=== PATIENT | female | born 1990 | race Asian ===

== ENCOUNTER → 2020-08-05 11:52 | Outpatient (BNVA) | payer OTHER, SELFPAY | PROVIDERS: PCP Internal Medicine; Visit Provider Advanced Practice Midwife | DX: N92.6 Irregular menstruation, unspecified (principal) | CPT/HCPCS: 81025; 99212 ==

== ENCOUNTER 2020-08-06 08:29 | Outpatient (REF) | payer OTHER, SELFPAY ==
--- NOTE | ~2020-08-06 | US_ITS ---
EXAMINATION: US OBSTETRICAL ULTRASOUND CLINICAL INFORMATION: For size and dates. COMPARISON: None. LMP: 06/07/2020. Gestational age by maternal dates is 8 weeks and 4 days. Estimated date of delivery by maternal dates is 02/14/2021. TECHNIQUE: Routine transabdominal ultrasound of pelvis is performed. FINDINGS: There is a single intrauterine gestational sac with visible yolk sac, embryo/fetus, and cardiac activity. There is no significant subchorionic hemorrhage or hematoma. HR: 135 beats per minute. CRL (crown rump length): 1.04 cm (7 weeks and 1 day, +/- 4 days). FRANCISCO (estimated date of delivery): 03/24/2021 +/- 4 days. MATERNAL ADNEXA: The right maternal ovary measures 2.78 x 1.04 x 2.61 cm. No focal lesion seen The left maternal ovary measures 3.37 x 2.32 x 2.36 cm. No focal lesion seen There is no significant maternal adnexal mass. No maternal pelvic ascites. US/US OB <= 14 weeks fetus IMPRESSION: 1. Single intrauterine gestation with ultrasound gestational age of 7 weeks and 1 day, +/- 4 days. 2. Estimated date of delivery is 03/24/2021 +/- 4 days. 3. No maternal adnexal mass or pelvic ascites.
== END 2020-08-06 08:30 | disposition home or self-care (01) ==
LOC: HO.HMGCX 08:29
PROVIDERS: Visit Provider Advanced Practice Midwife
DX: R10.2 Pelvic and perineal pain (principal); N92.6 Irregular menstruation, unspecified
CPT/HCPCS: 76801

== ENCOUNTER → 2020-08-21 10:01 | Outpatient (BNVA) | payer OTHER, SELFPAY | PROVIDERS: Visit Provider Advanced Practice Midwife | DX: Z34.90 Encounter for supervision of normal pregnancy, unspecified, unspecified trimester (principal); R20.0 Anesthesia of skin; N92.6 Irregular menstruation, unspecified; Z78.9 Other specified health status; Z3A.09 9 weeks gestation of pregnancy | CPT/HCPCS: 99212 ==

== ENCOUNTER → 2020-08-24 15:09 | Outpatient (REF) | payer OTHER, SELFPAY ==
--- NOTE | 2020-08-24 15:15 | ECG_ITS ---
Test Reason : PALPITATIONS Blood Pressure : / mmHG Vent. Rate : 102 BPM Atrial Rate : 102 BPM P-R Int : 116 ms QRS Dur : 084 ms QT Int : 330 ms P-R-T Axes : 060 029 057 degrees QTc Int : 430 ms Sinus tachycardia Otherwise normal ECG No previous ECGs available Referred By: Milagros Collier Electronically Signed By:CASSY FLORES
[2020-08-24 16:34] LABS: MANUAL DIFF FLAG NO
[2020-08-24 16:38] LABS: Basophils Percent Auto 0.1 % (0-2); Eosinophils Percent Auto 0.6 % (0-4); Hematocrit 38.4 % (37-47); Hemoglobin 12.7 g/dl (12.0-16.0); Imm Gran Abs Auto 0.03 X10*3/uL (0.00-0.03); Imm Gran Pct Auto 0.4 % (0.0-0.4); Lymphocytes Absolute Auto 1.6 X10*3/uL (1.2-4.9); Lymphocytes Percent Auto 22.5 % (20-40); Mean Corpuscular HGB Conc 33.1 g/dl (31.0-35.0); Mean Corpuscular Hemoglobin 28.1 pg (27.0-33.0); Mean Platelet Volume 10.1 fL (9.4-12.3); Monocytes Absolute Auto 0.4 X10*3/uL (0.1-1.2); Monocytes Percent Auto 5.2 % (2-11); Neutrophils Percent Auto 71.2 % (45-73); Platelet Count 302 X10*3/uL (160-400); Red Blood Count 4.52 X10*6/uL (4.20-5.50); Red Cell Distribution Width 15.5 % (11.0-16.0)
[2020-08-24 16:58] LABS: Amphetamine Screen Urine Not Detected (Not Detect); Barbiturates, Urine Not Detected (Not Detect); Benzodiazepines Screen Urine Not Detected (Not Detect); Cannabinoid Screen Urine Not Detected (Not Detect); Cocaine Screen Urine Not Detected (Not Detect); Opiate Screen Urine Not Detected (Not Detect); Phencyclidine Screen Urine Not Detected (Not Detect)
[2020-08-24 17:14] LABS: Syphilis Screen Nonreactive (Nonreactive)
[2020-08-24 17:21] LABS: Thyroid Stimulating Hormone 3.21 uIU/mL (0.32-4.0)
[2020-08-25 08:14] LABS: HBsAGNum1 0.41 S/CO (0.00-0.99); Hepatitis B Surface Antigen Negative (Negative)
[2020-08-25 08:28] LABS: HIV AB/AG Nonreactive (Nonreactive); HIV Num 1 0.06 S/CO (0.00-0.99); ~HepC Num1 0.09 S/CO (0.00-0.79); ~Hepatitis C Antibody Nonreactive (Nonreactive)
[2020-08-25 09:11] LABS: Rubella IgG Antibody 2.22 Index
== END ==
LOC: HO.CARD 15:09
PROVIDERS: PCP Internal Medicine; Visit Provider Advanced Practice Midwife
DX: O26.899 Other specified pregnancy related conditions, unspecified trimester (principal); R00.2 Palpitations
CPT/HCPCS: 80307; 84443; 85025; 86762; 86780; 86787; 86803; 86850; 86900; 86901; 87086; 87340; 87389; 93005

== ENCOUNTER 2020-09-02 11:03 | Outpatient (REF) | payer OTHER, SELFPAY ==
[2020-09-02 15:36] LABS: Glucose 1 Hour PP 50gm Dose 74 mg/dL (60-140)
[2020-09-02 16:03] LABS: Free T4 (Free Thyroxine) 0.71 ng/dL (0.71-1.85)
[2020-09-03 09:37] LABS: CT PCR NOT DETECTED (Not Detect.); NG PCR NOT DETECTED (Not Detect.)
[2020-09-03 09:51] LABS: BV Int Neg Control Negative (Negative); BV Int Pos Control Positive (Positive)
== END 2020-09-02 11:04 | disposition home or self-care (01) ==
LOC: HO.LAB 11:03
PROVIDERS: Absent Provider Advanced Practice Midwife; PCP Internal Medicine; Visit Provider Advanced Practice Midwife
DX: O26.899 Other specified pregnancy related conditions, unspecified trimester (principal); R94.6 Abnormal results of thyroid function studies; Z20.2 Contact with and (suspected) exposure to infections with a predominantly sexual mode of transmission; Z83.3 Family history of diabetes mellitus
CPT/HCPCS: 36415; 84439; 87480; 87491; 87510; 87591; 87660; 99212

== ENCOUNTER 2020-09-11 09:36 | Outpatient (REF) | payer OTHER, SELFPAY ==
--- NOTE | ~2020-09-11 | US_ITS ---
EXAMINATION: OBSTETRICAL ULTRASOUND, FIRST TRIMESTER HISTORY: 30-year-old at 12.2 weeks of gestation NT screening COMPARISON: 08/06/2020 TECHNIQUE: Real time transabdominal imaging with color and M-mode Doppler. FINDINGS: A single, live IUP CRL of 60.6 mm c/w 12.4wks is noted. Heart Rate: 150 beats per minute. Normal yolk sac seen. NT was 1.9.mm. NB Present The embryo appears sonographically wnl for this GA. Both maternal ovaries are seen and appear normal. GESTATIONAL AGE: 1. Established GA: 12.2 wks 2. GA from AUA: 03/24/2021 wks ESTIMATED DATE OF DELIVERY: 1. Established FRANCISCO: 12.4 wks 2. FRANCISCO from A: 03/22/2021 US/US OB 1T nuc measure add IMPRESSION: 1. Single live IUP 2. Size equals dates 3. NT of 1.9 mm MFM Consultation: I reviewed the ultrasound findings along with significance of NT measurement. The NT of less than 3mm is generally reassuring. However, the sensitivity for T21 detection is only 60%. I reviewed the availability of serum aneuploidy screening which includes cell-free DNA and placental protein based tests. I discussed the sensitivity, false-positive rate, and other limitations associated with each test. I also reviewed the availability of invasive diagnostic tests that are associated small but definite risk of miscarriage. We also reviewed the differences between screening tests and diagnostic tests. After our discussion, she opted for the First trimester screening that is based on cell-free DNA or non-invasive testing (NIPT). The result will be faxed to your office in approximately 7 days. A follow up at 18 weeks for survey has been scheduled. Thank you very much for this referral. Total time 20 minutes. The time spent was devoted to counseling the patient about the disease and diagnosis, coordinating care including reviewing her records, pertinent lab data and studies, as well as discussing diagnostic evaluation and workup, plan therapeutic interventions and future disposition of care. This includes any additional research needed to obtain further information in formulating the plan of care of this patient. This note was generated with a voice recognition program. Please excuse any errors which may have been overlooked during my review of this note. Sometimes these errors may affect the content or meaning of a given sentence.
== END 2020-09-11 09:37 | disposition home or self-care (01) ==
LOC: HO.US 09:36
PROVIDERS: PCP Internal Medicine; Visit Provider Advanced Practice Midwife
DX: Z34.90 Encounter for supervision of normal pregnancy, unspecified, unspecified trimester (principal); Z36.82 Encounter for antenatal screening for nuchal translucency
CPT/HCPCS: 76813; 76814

== ENCOUNTER → 2020-09-30 14:36 | Outpatient (BNVA) | payer OTHER, SELFPAY | PROVIDERS: Visit Provider Obstetrics & Gynecology | DX: R94.6 Abnormal results of thyroid function studies (principal) | CPT/HCPCS: 81003; 99212 ==

== ENCOUNTER → 2020-10-01 14:16 | Outpatient (BNVA) | payer OTHER, SELFPAY | PROVIDERS: PCP Internal Medicine; Visit Provider Internal Medicine ==

== ENCOUNTER 2020-10-05 15:31 | Outpatient (REF) | payer OTHER, SELFPAY ==
[2020-10-06 18:56] LABS: Thyroglobulin Antibodies <1 IU/mL (< or = 1); Thyroid Peroxidase Antibodies <1 IU/mL (<9)
== END 2020-10-05 15:32 | disposition home or self-care (01) ==
LOC: HO.LAB 15:31
PROVIDERS: PCP Internal Medicine; Visit Provider Internal Medicine
DX: E03.9 Hypothyroidism, unspecified (principal)
CPT/HCPCS: 36415; 86376; 86800

== ENCOUNTER 2020-10-23 11:32 | Outpatient (REF) | payer OTHER, SELFPAY ==
--- NOTE | ~2020-10-23 | US_ITS ---
EXAMINATION: US OBSTETRICAL CLINICAL INFORMATION: 30-year-old at 18.2 weeks of gestation Screening for anomaly COMPARISON: 09/11/2020 TECHNIQUE: Real-time transabdominal ultrasound was performed using C1-5 megahertz transducer. FINDINGS: A single, active, fetus is seen in vertex presentation. The placenta is posterior without previa, and the amniotic fluid volume is wnl. MEASUREMENTS: 1. Biparietal Diameter: 4.0 cm; 18.2 wks 2. Occipital Frontal Diameter: 5.4 cm 3. Head Circumference: 15.3 cm; 18.3 wks 4. Abdominal Circumference: 12.1 cm; 17.6 wks 5. Femur Length: 2.8 cm; 18.4 wks 6. Humerus Length: 2.7 cm; 18.4 wks 7. Tibia Length: 2.2 cm; 18.0 wks 8. Ulna Length: 2.3 cm; 18.1 wks 9. Lateral ventricle: 0.7 cm 10. Cerebellum: 1.8 cm; 18.5 wks 11. Cisterna Magna: 0.24 cm 12. Nuchal Fold: 3.0 mm 13. Heart Rate: 149 beats per minute Rt ovary: normal Lt ovary: normal Cervical length 3.7 cm on T/A. GESTATIONAL AGE: 1. Established GA: 18.2 wks 2. GA from [facility]: 18.2 wks ESTIMATED DATE OF DELIVERY: 1. Established FRANCISCO: 03/24/2021 2. FRANCISCO from [facility]: 03/24/2021 ANATOMY: The visualized anatomy includes but not limited to: 1. Cranium: Normal 2. Intracranial anatomy: cavum septum pellucidi, lateral ventricles, choroid plexus, cerebellum, posterior fossa, third and fourth ventricles. 3. face: orbits, lip/palate, profile, nasal bone 4. Heart: four-chamber view of the heart, ventricular septum, foramen ovale, pulmonary vein, left and right outflow tracts, three-vessel view, 3 vessel trachea view, aortic and ductal arches, situs.. 5. Diaphragm: Normal 6. Abdominal wall: Normal 7. Cord Insertion: Normal 8. Spine: Cervical, thoracic, lumbar, sacral. 9. Stomach: Normal size and shape 10. Right Kidney: Normal 11. Left Kidney: Normal 12. 3 vessel cord: Normal 13. Upper extremity: Open hands, fifth digit. 14. Lower extremity: Tibia, fibula, bilateral feet. 15. Bladder: Normal 16. Genitalia: Female, patient aware US/US OB /maternal detail IMPRESSION: 1. Single, living, intrauterine with appropriate biometry. 2. Normal survey DISCUSSION: I reviewed today's ultrasound findings. We discussed the limitations of ultrasound in diagnosing aneuploidy and other congenital abnormalities. I reviewed the differences between screening test and diagnostic test. Amniocentesis was discussed and declined. She was informed that the baseline incidence of congenital abnormalities is approximately 3-5%. Not all these conditions are diagnosable in utero. RECOMMENDATIONS: 1. Follow-up when necessary. Thank you for allowing me to participate in her care. Total time 30 minutes. The time spent was devoted to counseling the patient about the disease and diagnosis, coordinating care including reviewing her records, pertinent lab data and studies, as well as discussing diagnostic evaluation and workup, plan therapeutic interventions and future disposition of care. This includes any additional research needed to obtain further information in formulating the plan of care of this patient. This note was generated with a voice recognition program. Please excuse any errors which may have been overlooked during my review of this note. Sometimes these errors may affect the content or meaning of a given sentence.
== END 2020-10-23 11:33 | disposition home or self-care (01) ==
LOC: HO.US 11:32
PROVIDERS: PCP Internal Medicine; Visit Provider Obstetrics & Gynecology
DX: Z34.92 Encounter for supervision of normal pregnancy, unspecified, second trimester (principal); Z36.3 Encounter for antenatal screening for malformations
CPT/HCPCS: 76811

== ENCOUNTER → 2020-10-29 14:51 | Outpatient (BNVA) | payer OTHER, SELFPAY | PROVIDERS: PCP Internal Medicine; Visit Provider Advanced Practice Midwife | DX: Z34.92 Encounter for supervision of normal pregnancy, unspecified, second trimester (principal); M53.3 Sacrococcygeal disorders, not elsewhere classified; Z3A.19 19 weeks gestation of pregnancy | CPT/HCPCS: 99212 ==

== ENCOUNTER → 2020-11-04 10:47 | Outpatient (BNVA) | payer OTHER, SELFPAY | PROVIDERS: PCP Internal Medicine; Visit Provider Internal Medicine ==

== ENCOUNTER 2020-12-09 13:41 | Outpatient (REF) | payer OTHER, SELFPAY ==
[2020-12-09 16:28] LABS: Free T4 (Free Thyroxine) 0.78 ng/dL (0.71-1.85); Thyroid Stimulating Hormone 0.59 uIU/mL (0.32-4.0)
== END 2020-12-09 13:42 | disposition home or self-care (01) ==
LOC: HO.LAB 13:41
PROVIDERS: PCP Nurse Practitioner Family; Referring Provider Internal Medicine; Visit Provider Advanced Practice Midwife
DX: O26.892 Other specified pregnancy related conditions, second trimester (principal); E03.9 Hypothyroidism, unspecified
CPT/HCPCS: 36415; 84439; 84443; 99212

== ENCOUNTER 2020-12-31 13:52 | Outpatient (REF) | payer OTHER, SELFPAY ==
[2020-12-31 16:42] LABS: Hematocrit 38.6 % (37-47); Hemoglobin 12.4 g/dl (12.0-16.0); Mean Corpuscular HGB Conc 32.1 g/dl (31.0-35.0); Mean Corpuscular Hemoglobin 28.4 pg (27.0-33.0); Mean Corpuscular Volume 88.3 fL (80-98); Mean Platelet Volume 10.1 fL (9.4-12.3); Platelet Count 280 X10*3/uL (160-400); Red Blood Count 4.37 X10*6/uL (4.20-5.50); Red Cell Distribution Width 14.1 % (11.0-16.0); White Blood Count 8.7 X10*3/uL (4.8-10.8)
[2020-12-31 17:11] LABS: Alanine Aminotransferase 23 U/L (0-31); Aspartate Amino Transferase 19 U/L (5-31); Blood Urea Nitrogen 9 mg/dL (9-16)
[2020-12-31 17:33] LABS: Creatinine Urine 45.46 mg/dL; Total Protein Urine Random < 7 mg/dL (<12)
== END 2020-12-31 13:53 | disposition home or self-care (01) ==
LOC: HO.LAB 13:52
PROVIDERS: Absent Provider Internal Medicine; PCP Nurse Practitioner Family; Visit Provider Advanced Practice Midwife
DX: O26.899 Other specified pregnancy related conditions, unspecified trimester (principal); O26.849 Uterine size-date discrepancy, unspecified trimester; R10.11 Right upper quadrant pain; R51.9 Headache, unspecified; Z56.3 Stressful work schedule; Z13.31 Encounter for screening for depression; Z3A.28 28 weeks gestation of pregnancy
CPT/HCPCS: 36415; 81003; 84156; 84450; 84460; 84520; 85027; 99212

== ENCOUNTER 2021-01-08 08:28 | Outpatient (REF) | payer OTHER, SELFPAY ==
--- NOTE | ~2021-01-08 | US_ITS ---
EXAMINATION: OBSTETRICAL ULTRASOUND, Follow up HISTORY: A 30-year-old at the 29.2 weeks of gestation Size date discrepancy COMPARISON: 10/23/2020 TECHNIQUE: Real time transabdominal imaging with color and M-mode Doppler. PRESENTATION: Breech PLACENTA LOCATION: Posterior without previa AMNIOTIC FLUID: DAVON 12.5 cm MEASUREMENTS: 1. Biparietal Diameter: 6.8 cm; 27.4 wks 2. Head Circumference: 26.5 cm; 29.0 wks 3. Abdominal Circumference: 23.1 cm; 27.3 wks 4. Femur Length: 5.4 cm; 28.5 wks 5. Heart Rate: 143 beats per minute WEIGHT: EFW: 1155 grams (2 lbs 9 oz) -- 7 %. BIOPHYSICAL PROFILE: Motion: 2 Tone: 2 Breathin Amniotic Fluid: 2 Total score: 8/8 UA Doppler showed the SD ratio of 2.7. GESTATIONAL AGE: 1. Established GA: 29.2 wks 2. GA from AUA: 28.2 wks ESTIMATED DATE OF DELIVERY: 1. Established FRANCISCO: 03/24/2021 2. FRANCISCO from AUA: 03/31/2021 US/US OB follow up IMPRESSION: 1. A single active fetus is in breech presentation 2. Size less than dates. EFW corresponds to 7th percentile 3. Reassuring biophysical profile 4. Normal SD ratio in the umbilical artery I reviewed today's ultrasound findings and informed her that the EFW is below the 10th percentile. We also discussed the limitations of ultrasound in estimating weights. I informed her that the majority of the fetuses whose EFW corresponds to less than 10th percentile are constitutionally small but healthy fetuses growing to their full genetic potential. Approximately 30% may be experiencing placental insufficiency and are not growing to their full genetic potential. Often it can be difficult to distinguish the 2 in utero. The testing is reassuring including the umbilical artery Doppler. I recommended that we begin weekly NST, BPP/UA Doppler evaluation. A repeat growth will be done in 2 weeks. Thank you very much for this referral. Total time 30 minutes. The time spent was devoted to counseling the patient about the disease and diagnosis, coordinating care including reviewing her records, pertinent lab data and studies, as well as discussing diagnostic evaluation and workup, plan therapeutic interventions and future disposition of care. This includes any additional research needed to obtain further information in formulating the plan of care of this patient. This note was generated with a voice recognition program. Please excuse any errors which may have been overlooked during my review of this note. Sometimes these errors may affect the content or meaning of a given sentence.
--- NOTE | ~2021-01-08 | US_ITS ---
EXAMINATION: OBSTETRICAL ULTRASOUND, Follow up HISTORY: A 30-year-old at the 29.2 weeks of gestation Size date discrepancy COMPARISON: 10/23/2020 TECHNIQUE: Real time transabdominal imaging with color and M-mode Doppler. PRESENTATION: Breech PLACENTA LOCATION: Posterior without previa AMNIOTIC FLUID: DAVON 12.5 cm MEASUREMENTS: 1. Biparietal Diameter: 6.8 cm; 27.4 wks 2. Head Circumference: 26.5 cm; 29.0 wks 3. Abdominal Circumference: 23.1 cm; 27.3 wks 4. Femur Length: 5.4 cm; 28.5 wks 5. Heart Rate: 143 beats per minute WEIGHT: EFW: 1155 grams (2 lbs 9 oz) -- 7 %. BIOPHYSICAL PROFILE: Motion: 2 Tone: 2 Breathin Amniotic Fluid: 2 Total score: 8/8 UA Doppler showed the SD ratio of 2.7. GESTATIONAL AGE: 1. Established GA: 29.2 wks 2. GA from A: 28.2 wks ESTIMATED DATE OF DELIVERY: 1. Established FRANCISCO: 03/24/2021 2. FRANCISCO from AUA: 03/31/2021 US/US OB velocimetry umbilical ar IMPRESSION: 1. A single active fetus is in breech presentation 2. Size less than dates. EFW corresponds to 7th percentile 3. Reassuring biophysical profile 4. Normal SD ratio in the umbilical artery I reviewed today's ultrasound findings and informed her that the EFW is below the 10th percentile. We also discussed the limitations of ultrasound in estimating weights. I informed her that the majority of the fetuses whose EFW corresponds to less than 10th percentile are constitutionally small but healthy fetuses growing to their full genetic potential. Approximately 30% may be experiencing placental insufficiency and are not growing to their full genetic potential. Often it can be difficult to distinguish the 2 in utero. The testing is reassuring including the umbilical artery Doppler. I recommended that we begin weekly NST, BPP/UA Doppler evaluation. A repeat growth will be done in 2 weeks. Thank you very much for this referral. Total time 30 minutes. The time spent was devoted to counseling the patient about the disease and diagnosis, coordinating care including reviewing her records, pertinent lab data and studies, as well as discussing diagnostic evaluation and workup, plan therapeutic interventions and future disposition of care. This includes any additional research needed to obtain further information in formulating the plan of care of this patient. This note was generated with a voice recognition program. Please excuse any errors which may have been overlooked during my review of this note. Sometimes these errors may affect the content or meaning of a given sentence.
== END 2021-01-08 08:29 | disposition home or self-care (01) ==
LOC: HO.US 08:28
PROVIDERS: PCP Internal Medicine; Visit Provider Advanced Practice Midwife
DX: O26.843 Uterine size-date discrepancy, third trimester (principal); Z3A.29 29 weeks gestation of pregnancy
CPT/HCPCS: 76816; 76820

== ENCOUNTER → 2021-01-14 14:40 | Outpatient (BNVA) | payer MEDICAID, SELFPAY | PROVIDERS: PCP Nurse Practitioner Family; Visit Provider Advanced Practice Midwife | DX: O36.5930 Maternal care for other known or suspected poor fetal growth, third trimester, not applicable or unspecified (principal); Z3A.30 30 weeks gestation of pregnancy | CPT/HCPCS: 99212 ==

== ENCOUNTER 2021-01-15 13:34 | Outpatient (REF) | payer MEDICAID, OTHER, SELFPAY ==
--- NOTE | ~2021-01-15 | US_ITS ---
EXAMINATION: US OBSTETRICAL (BIOPHYSICAL PROFILE) CLINICAL INFORMATION: 30-year-old at 30.2 weeks of gestation IUGR COMPARISON: 01/08/2021 TECHNIQUE: Biophysical profile is performed over 30 minutes with assessment of breathing, gross body movement, tone, and qualitative amniotic fluid volume. FINDINGS: POSITION: Cephalic PLACENTA: Posterior without previa AMNIOTIC FLUID INDEX: 16.0 cm CARDIAC ACTIVITY: 153 beats per minute BIOPHYSICAL PROFILE: Motion: 2 Tone: 2 Breathin Amniotic Fluid: 2 The total biophysical score is 8/8 Umbilical artery Doppler showed SD ratio of 2.8. US/US OB biophysical profile IMPRESSION: 1. Single intrauterine gestation in vertex position. 2. Reassuring BPP and DAVON Continue weekly testing. Repeat growth next week. Thank you for allowing me to participate in her care. This note was generated with a voice recognition program. Please excuse any errors which may have been overlooked during my review of this note. Sometimes these errors may affect the content or meaning of a given sentence.
== END 2021-01-15 13:35 | disposition home or self-care (01) ==
LOC: HO.US 13:34
PROVIDERS: PCP Internal Medicine; Visit Provider Advanced Practice Midwife
DX: O36.5990 Maternal care for other known or suspected poor fetal growth, unspecified trimester, not applicable or unspecified (principal)
CPT/HCPCS: 76819

== ENCOUNTER → 2021-01-20 11:43 | Outpatient (BNVA) | payer OTHER, SELFPAY | PROVIDERS: PCP Nurse Practitioner Family; Visit Provider Internal Medicine ==

== ENCOUNTER 2021-01-22 09:39 | Outpatient (REF) | payer OTHER, SELFPAY ==
--- NOTE | ~2021-01-22 | US_ITS ---
EXAMINATION: OBSTETRICAL ULTRASOUND, Follow up HISTORY: 30-year-old at 31.2 weeks of gestation IUGR COMPARISON: 01/15/2021 TECHNIQUE: Real time transabdominal imaging with color and M-mode Doppler. PRESENTATION: Vertex PLACENTA LOCATION: Posterior without previa AMNIOTIC FLUID: DAVON 12.3 cm MEASUREMENTS: 1. Biparietal Diameter: 7.3 cm; 29.4 wks 2. Head Circumference: 27.4 cm; 30.0 wks 3. Abdominal Circumference: 26.4 cm; 30.4 wks 4. Femur Length: 6.0 cm; 31.2 wks 5. Heart Rate: 153 beats per minute WEIGHT: EFW: 1603 grams (3 lbs 9 oz) -- 18 %. BIOPHYSICAL PROFILE: Motion: 2 Tone: 2 Breathin Amniotic Fluid: 2 Total score: 8/8 UA Doppler: S/D: 2.8 GESTATIONAL AGE: 1. Established GA: 31.2 wks 2. GA from AUA: 30.3 wks ESTIMATED DATE OF DELIVERY: 1. Established FRANCISCO: 03/24/2021 2. FRANCISCO from AUA: 03/30/2021 US/US OB follow up IMPRESSION: 1. A single active fetus is in vertex presentation 2. Size equals dates, compared to the prior exam, there has been an appropriate interval growth. 3. BPP 88 4. Normal umbilical artery Doppler flow. I reviewed the findings listed above appropriate. Both the biophysical profile score and SD ratio through the umbilical artery are reassuring. She is to continue weekly testing. Thank you very much for this referral. This note was generated with a voice recognition program. Please excuse any errors which may have been overlooked during my review of this note. Sometimes these errors may affect the content or meaning of a given sentence.
--- NOTE | ~2021-01-22 | US_ITS ---
EXAMINATION: OBSTETRICAL ULTRASOUND, Follow up HISTORY: 30-year-old at 31.2 weeks of gestation IUGR COMPARISON: 01/15/2021 TECHNIQUE: Real time transabdominal imaging with color and M-mode Doppler. PRESENTATION: Vertex PLACENTA LOCATION: Posterior without previa AMNIOTIC FLUID: DAVON 12.3 cm MEASUREMENTS: 1. Biparietal Diameter: 7.3 cm; 29.4 wks 2. Head Circumference: 27.4 cm; 30.0 wks 3. Abdominal Circumference: 26.4 cm; 30.4 wks 4. Femur Length: 6.0 cm; 31.2 wks 5. Heart Rate: 153 beats per minute WEIGHT: EFW: 1603 grams (3 lbs 9 oz) -- 18 %. BIOPHYSICAL PROFILE: Motion: 2 Tone: 2 Breathin Amniotic Fluid: 2 Total score: 8/8 UA Doppler: S/D: 2.8 GESTATIONAL AGE: 1. Established GA: 31.2 wks 2. GA from A: 30.3 wks ESTIMATED DATE OF DELIVERY: 1. Established FRANCISCO: 03/24/2021 2. FRANCISCO from A: 03/30/2021 US/US OB velocimetry umbilical ar IMPRESSION: 1. A single active fetus is in vertex presentation 2. Size equals dates, compared to the prior exam, there has been an appropriate interval growth. 3. BPP 8/8 4. Normal umbilical artery Doppler flow. I reviewed the findings listed above appropriate. Both the biophysical profile score and SD ratio through the umbilical artery are reassuring. She is to continue weekly testing. Thank you very much for this referral. This note was generated with a voice recognition program. Please excuse any errors which may have been overlooked during my review of this note. Sometimes these errors may affect the content or meaning of a given sentence.
== END 2021-01-22 09:40 | disposition home or self-care (01) ==
LOC: HO.US 09:39
PROVIDERS: Visit Provider Advanced Practice Midwife
DX: O36.5990 Maternal care for other known or suspected poor fetal growth, unspecified trimester, not applicable or unspecified (principal)
CPT/HCPCS: 76816; 76820

== ENCOUNTER 2021-01-26 10:07 | Outpatient (REF) | payer OTHER, SELFPAY ==
[2021-01-26 13:50] LABS: Hematocrit 37.6 % (37-47); Hemoglobin 12.3 g/dl (12.0-16.0); Mean Corpuscular HGB Conc 32.7 g/dl (31.0-35.0); Mean Corpuscular Hemoglobin 28.5 pg (27.0-33.0); Mean Platelet Volume 10.3 fL (9.4-12.3); Platelet Count 260 X10*3/uL (160-400); Red Blood Count 4.32 X10*6/uL (4.20-5.50); Red Cell Distribution Width 13.9 % (11.0-16.0); White Blood Count 7.4 X10*3/uL (4.8-10.8)
[2021-01-26 13:55] LABS: Glucose 1 Hour PP 50gm Dose 129 mg/dL (60-140)
[2021-01-27 08:04] LABS: Syphilis Screen Nonreactive (Nonreactive)
== END 2021-01-26 10:08 | disposition home or self-care (01) ==
LOC: HO.LAB 10:07
PROVIDERS: Absent Provider Advanced Practice Midwife; Visit Provider Advanced Practice Midwife
DX: O36.5930 Maternal care for other known or suspected poor fetal growth, third trimester, not applicable or unspecified (principal); Z3A.31 31 weeks gestation of pregnancy
CPT/HCPCS: 36415; 59025; 81003; 85027; 86780; 99212

== ENCOUNTER → 2021-02-02 10:25 | Outpatient (BNVA) | payer OTHER, SELFPAY | PROVIDERS: Visit Provider Advanced Practice Midwife | DX: O36.5930 Maternal care for other known or suspected poor fetal growth, third trimester, not applicable or unspecified (principal); Z3A.32 32 weeks gestation of pregnancy | CPT/HCPCS: 59025; 81003; 90471; 90715; 99212 ==

== ENCOUNTER 2021-02-05 13:56 | Outpatient (REF) | payer MEDICAID, SELFPAY ==
--- NOTE | ~2021-02-05 | US_ITS ---
EXAMINATION: OBSTETRICAL ULTRASOUND, Follow up HISTORY: A 30-year-old the at the 33.2 weeks of gestation Size date discrepancy COMPARISON: 01/22/1991 TECHNIQUE: Real time transabdominal imaging with color and M-mode Doppler. PRESENTATION: Vertex PLACENTA LOCATION: Posterior without previa AMNIOTIC FLUID: DAVON 15.9 cm MEASUREMENTS: 1. Biparietal Diameter: 7.7 cm; 30.6 wks 2. Head Circumference: 29.6 cm; 32.5 wks 3. Abdominal Circumference: 28.7 cm; 32.5 wks 4. Femur Length: 6.4 cm; 33.2 wks 5. Heart Rate: 138 beats per minute WEIGHT: EFW: 2026 grams (4 lbs 8 oz) -- 24 %. BIOPHYSICAL PROFILE: Motion: 2 Tone: 2 Breathin Amniotic Fluid: 2 Total score: 8/8 UA Doppler: SD 3.8. GESTATIONAL AGE: 1. Established GA: 33.2 wks 2. GA from AUA: 32.3 wks ESTIMATED DATE OF DELIVERY: 1. Established FRANCISCO: 03/24/2021 2. FRANCISCO from AUA: 03/30/2021 US/US OB follow up IMPRESSION: 1. A single active fetus is in vertex presentation 2. Size equals dates 3. Reassuring biophysical profile with normal amniotic fluid volume 4. Normal S/D ratio in the umbilical artery I reviewed today's findings and informed her that there has been an appropriate interval growth in 2 weeks. Given that the fetus has been growing appropriately, I recommended that we discontinue weekly ultrasound evaluation. A further follow-up has not been scheduled. Thank you very much for this referral. This note was generated with a voice recognition program. Please excuse any errors which may have been overlooked during my review of this note. Sometimes these errors may affect the content or meaning of a given sentence.
--- NOTE | ~2021-02-05 | US_ITS ---
EXAMINATION: OBSTETRICAL ULTRASOUND, Follow up HISTORY: A 30-year-old the at the 33.2 weeks of gestation Size date discrepancy COMPARISON: 01/22/1991 TECHNIQUE: Real time transabdominal imaging with color and M-mode Doppler. PRESENTATION: Vertex PLACENTA LOCATION: Posterior without previa AMNIOTIC FLUID: DAVON 15.9 cm MEASUREMENTS: 1. Biparietal Diameter: 7.7 cm; 30.6 wks 2. Head Circumference: 29.6 cm; 32.5 wks 3. Abdominal Circumference: 28.7 cm; 32.5 wks 4. Femur Length: 6.4 cm; 33.2 wks 5. Heart Rate: 138 beats per minute WEIGHT: EFW: 2026 grams (4 lbs 8 oz) -- 24 %. BIOPHYSICAL PROFILE: Motion: 2 Tone: 2 Breathin Amniotic Fluid: 2 Total score: 8/8 UA Doppler: SD 3.8. GESTATIONAL AGE: 1. Established GA: 33.2 wks 2. GA from AUA: 32.3 wks ESTIMATED DATE OF DELIVERY: 1. Established FRANCISCO: 03/24/2021 2. FRANCISCO from AUA: 03/30/2021 US/US OB velocimetry umbilical ar IMPRESSION: 1. A single active fetus is in vertex presentation 2. Size equals dates 3. Reassuring biophysical profile with normal amniotic fluid volume 4. Normal S/D ratio in the umbilical artery I reviewed today's findings and informed her that there has been an appropriate interval growth in 2 weeks. Given that the fetus has been growing appropriately, I recommended that we discontinue weekly ultrasound evaluation. A further follow-up has not been scheduled. Thank you very much for this referral. This note was generated with a voice recognition program. Please excuse any errors which may have been overlooked during my review of this note. Sometimes these errors may affect the content or meaning of a given sentence.
== END 2021-02-05 13:57 | disposition home or self-care (01) ==
LOC: HO.US 13:56
PROVIDERS: Visit Provider Advanced Practice Midwife
DX: O36.5990 Maternal care for other known or suspected poor fetal growth, unspecified trimester, not applicable or unspecified (principal)
CPT/HCPCS: 76816; 76820

== ENCOUNTER → 2021-02-16 10:13 | Outpatient (BNVA) | payer OTHER, MEDICAID, SELFPAY | PROVIDERS: PCP Internal Medicine; Visit Provider Advanced Practice Midwife | DX: Z34.03 Encounter for supervision of normal first pregnancy, third trimester (principal); Z3A.34 34 weeks gestation of pregnancy | CPT/HCPCS: 81003; 99212 ==

== ENCOUNTER 2021-03-02 13:48 | Outpatient (REF) | payer OTHER, MEDICAID, SELFPAY ==
[2021-03-03 11:12] LABS: CT PCR NOT DETECTED (Not Detect.); NG PCR NOT DETECTED (Not Detect.)
== END 2021-03-02 13:49 | disposition home or self-care (01) ==
LOC: HO.LAB 13:48
PROVIDERS: Visit Provider Advanced Practice Midwife
DX: O36.8130 Decreased fetal movements, third trimester, not applicable or unspecified (principal); O36.5930 Maternal care for other known or suspected poor fetal growth, third trimester, not applicable or unspecified
CPT/HCPCS: 59025; 81003; 87081; 87491; 87591; 99212

== ENCOUNTER 2021-03-05 09:06 | Outpatient (REF) | payer OTHER, SELFPAY ==
--- NOTE | ~2021-03-05 | US_ITS ---
EXAMINATION: OBSTETRICAL ULTRASOUND, Follow up HISTORY: 31-year-old at 37.2 weeks of gestation growth restriction COMPARISON: 02/05/2021 TECHNIQUE: Real time transabdominal imaging with color and M-mode Doppler. PRESENTATION: Vertex PLACENTA LOCATION: Posterior without previa AMNIOTIC FLUID: DAVON 12.4 cm MEASUREMENTS: 1. Biparietal Diameter: 8.5 cm; 34.1 wks 2. Head Circumference: 32.8 cm; 37.3 wks 3. Abdominal Circumference: 30.7 cm; 34.5 wks 4. Femur Length: 7.0 cm; 36.0 wks 5. Heart Rate: 142 beats per minute WEIGHT: EFW: 2621 grams (5 lbs 12 oz) -- 12 %. BIOPHYSICAL PROFILE: Motion: 2 Tone: 2 Breathin Amniotic Fluid: 2 Total score: 8/8 UA Doppler: S/D 3.0 GESTATIONAL AGE: 1. Established GA: 37.2 wks 2. GA from AUA: 35.4 wks ESTIMATED DATE OF DELIVERY: 1. Established FRANCISCO: 03/24/2021 2. FRANCISCO from AUA: 04/05/2021 US/US OB follow up IMPRESSION: 1. A single active fetus is in vertex presentation 2. The EFW corresponds to 12th percentile. 3. Reassuring biophysical profile with normal amniotic fluid index 4. Normal SD ratio in the umbilical artery. I've informed her that there has been less than expected interval growth. The EFW corresponds to 12th percentile. Abdominal circumference corresponds to 10th percentile for this gestational age. I discussed the limitations of ultrasound and estimating weight. In addition majority of the fetuses whose EFW is close to 10th percentile are constitutionally small but healthy fetuses. Recommend starting weekly NST and BPP. Consider delivery at approximately 39 weeks of gestation. Thank you very much for this referral. Total time 30 minutes. The time spent was devoted to counseling the patient about the disease and diagnosis, coordinating care including reviewing her records, pertinent lab data and studies, as well as discussing diagnostic evaluation and workup, plan therapeutic interventions and future disposition of care. This includes any additional research needed to obtain further information in formulating the plan of care of this patient. This note was generated with a voice recognition program. Please excuse any errors which may have been overlooked during my review of this note. Sometimes these errors may affect the content or meaning of a given sentence.
--- NOTE | ~2021-03-05 | US_ITS ---
EXAMINATION: OBSTETRICAL ULTRASOUND, Follow up HISTORY: 31-year-old at 37.2 weeks of gestation growth restriction COMPARISON: 02/05/2021 TECHNIQUE: Real time transabdominal imaging with color and M-mode Doppler. PRESENTATION: Vertex PLACENTA LOCATION: Posterior without previa AMNIOTIC FLUID: DAVON 12.4 cm MEASUREMENTS: 1. Biparietal Diameter: 8.5 cm; 34.1 wks 2. Head Circumference: 32.8 cm; 37.3 wks 3. Abdominal Circumference: 30.7 cm; 34.5 wks 4. Femur Length: 7.0 cm; 36.0 wks 5. Heart Rate: 142 beats per minute WEIGHT: EFW: 2621 grams (5 lbs 12 oz) -- 12 %. BIOPHYSICAL PROFILE: Motion: 2 Tone: 2 Breathin Amniotic Fluid: 2 Total score: 8/8 UA Doppler: S/D 3.0 GESTATIONAL AGE: 1. Established GA: 37.2 wks 2. GA from A: 35.4 wks ESTIMATED DATE OF DELIVERY: 1. Established FRANCISCO: 03/24/2021 2. FRANCISCO from A: 04/05/2021 US/US OB velocimetry umbilical ar IMPRESSION: 1. A single active fetus is in vertex presentation 2. The EFW corresponds to 12th percentile. 3. Reassuring biophysical profile with normal amniotic fluid index 4. Normal SD ratio in the umbilical artery. I've informed her that there has been less than expected interval growth. The EFW corresponds to 12th percentile. Abdominal circumference corresponds to 10th percentile for this gestational age. I discussed the limitations of ultrasound and estimating weight. In addition majority of the fetuses whose EFW is close to 10th percentile are constitutionally small but healthy fetuses. Recommend starting weekly NST and BPP. Consider delivery at approximately 39 weeks of gestation. Thank you very much for this referral. Total time 30 minutes. The time spent was devoted to counseling the patient about the disease and diagnosis, coordinating care including reviewing her records, pertinent lab data and studies, as well as discussing diagnostic evaluation and workup, plan therapeutic interventions and future disposition of care. This includes any additional research needed to obtain further information in formulating the plan of care of this patient. This note was generated with a voice recognition program. Please excuse any errors which may have been overlooked during my review of this note. Sometimes these errors may affect the content or meaning of a given sentence.
== END 2021-03-05 09:07 | disposition home or self-care (01) ==
LOC: HO.US 09:06
PROVIDERS: Visit Provider Advanced Practice Midwife
DX: O36.5930 Maternal care for other known or suspected poor fetal growth, third trimester, not applicable or unspecified (principal)
CPT/HCPCS: 76816; 76820

== ENCOUNTER → 2021-03-09 09:03 | Outpatient (BNVA) | payer OTHER, SELFPAY | PROVIDERS: Visit Provider Advanced Practice Midwife | DX: O36.5930 Maternal care for other known or suspected poor fetal growth, third trimester, not applicable or unspecified (principal); O99.283 Endocrine, nutritional and metabolic diseases complicating pregnancy, third trimester; O26.843 Uterine size-date discrepancy, third trimester; Z3A.37 37 weeks gestation of pregnancy | CPT/HCPCS: 59025; 81003; 99212 ==

== ENCOUNTER 2021-03-12 08:00 | Outpatient (RCR) | payer OTHER, MEDICAID, SELFPAY | END 2021-03-19 07:44 | disposition home or self-care (01) | LOC: HO.PT 08:00 | PROVIDERS: PCP Internal Medicine; Visit Provider Advanced Practice Midwife | DX: M53.3 Sacrococcygeal disorders, not elsewhere classified (principal) | CPT/HCPCS: 97110; 97112; 97140; 97161; 97530 ==

== ENCOUNTER 2021-03-12 10:25 | Outpatient (REF) | payer OTHER, SELFPAY ==
--- NOTE | ~2021-03-12 | US_ITS ---
EXAMINATION: US OBSTETRICAL (BIOPHYSICAL PROFILE) CLINICAL INFORMATION: 31-year-old at the 38.2 weeks of gestation FGR COMPARISON: 03/05/2021 TECHNIQUE: Biophysical profile is performed over 30 minutes with assessment of breathing, gross body movement, tone, and qualitative amniotic fluid volume. FINDINGS: POSITION: Cephalic PLACENTA: Posterior without previa AMNIOTIC FLUID INDEX: 11.4 cm CARDIAC ACTIVITY: 147 beats per minute BIOPHYSICAL PROFILE: Motion: 2 Tone: 2 Breathin Amniotic Fluid: 2 The total biophysical score is 8/8 UA Doppler: SD 3.0 US/US OB biophysical profile IMPRESSION: 1. Single intrauterine gestation in vertex position. 2. Reassuring BPP and DAVON 3. Normal SD in the umbilical artery. She meets the FGR criteria based on before meals less than 10th percentile. I gave her reassurance based on today's findings. She is to follow-up next week for repeat the growth. We discussed the risks and benefits of induction of labor at 39 weeks in the setting of FGR versus expectant management until due date. Since the testing is reassuring, and the EFW last week corresponded to 12th percentile, it would be reasonable to continue until her due date. Thank you for allowing me to participate in her care. Total time 30 minutes. The time spent was devoted to counseling the patient about the disease and diagnosis, coordinating care including reviewing her records, pertinent lab data and studies, as well as discussing diagnostic evaluation and workup, plan therapeutic interventions and future disposition of care. This includes any additional research needed to obtain further information in formulating the plan of care of this patient. This note was generated with a voice recognition program. Please excuse any errors which may have been overlooked during my review of this note. Sometimes these errors may affect the content or meaning of a given sentence.
--- NOTE | ~2021-03-12 | US_ITS ---
EXAMINATION: US OBSTETRICAL (BIOPHYSICAL PROFILE) CLINICAL INFORMATION: 31-year-old at the 38.2 weeks of gestation FGR COMPARISON: 03/05/2021 TECHNIQUE: Biophysical profile is performed over 30 minutes with assessment of breathing, gross body movement, tone, and qualitative amniotic fluid volume. FINDINGS: POSITION: Cephalic PLACENTA: Posterior without previa AMNIOTIC FLUID INDEX: 11.4 cm CARDIAC ACTIVITY: 147 beats per minute BIOPHYSICAL PROFILE: Motion: 2 Tone: 2 Breathin Amniotic Fluid: 2 The total biophysical score is 8/8 UA Doppler: SD 3.0 US/US OB velocimetry umbilical ar IMPRESSION: 1. Single intrauterine gestation in vertex position. 2. Reassuring BPP and DAVON 3. Normal SD in the umbilical artery. She meets the FGR criteria based on before meals less than 10th percentile. I gave her reassurance based on today's findings. She is to follow-up next week for repeat the growth. We discussed the risks and benefits of induction of labor at 39 weeks in the setting of FGR versus expectant management until due date. Since the testing is reassuring, and the EFW last week corresponded to 12th percentile, it would be reasonable to continue until her due date. Thank you for allowing me to participate in her care. Total time 30 minutes. The time spent was devoted to counseling the patient about the disease and diagnosis, coordinating care including reviewing her records, pertinent lab data and studies, as well as discussing diagnostic evaluation and workup, plan therapeutic interventions and future disposition of care. This includes any additional research needed to obtain further information in formulating the plan of care of this patient. This note was generated with a voice recognition program. Please excuse any errors which may have been overlooked during my review of this note. Sometimes these errors may affect the content or meaning of a given sentence.
== END 2021-03-12 10:26 | disposition home or self-care (01) ==
LOC: HO.US 10:25
PROVIDERS: Visit Provider Advanced Practice Midwife
DX: O36.5930 Maternal care for other known or suspected poor fetal growth, third trimester, not applicable or unspecified (principal); Z3A.38 38 weeks gestation of pregnancy
CPT/HCPCS: 76819; 76820

== ENCOUNTER → 2021-03-16 09:48 | Outpatient (BNVA) | payer OTHER, SELFPAY | PROVIDERS: Visit Provider Advanced Practice Midwife | DX: O36.8130 Decreased fetal movements, third trimester, not applicable or unspecified (principal); Z3A.38 38 weeks gestation of pregnancy | CPT/HCPCS: 59025; 81003; 99212 ==

== ENCOUNTER 2021-03-25 13:58 | Outpatient (REF) | payer OTHER, SELFPAY | END 2021-03-25 13:59 | disposition home or self-care (01) | LOC: HO.LAB 13:58 | PROVIDERS: Visit Provider Obstetrics & Gynecology | DX: N39.0 Urinary tract infection, site not specified (principal); Z98.891 History of uterine scar from previous surgery | CPT/HCPCS: 87086; 99212 ==

== ENCOUNTER 2021-04-21 14:37 | Outpatient (REF) | payer OTHER, SELFPAY ==
[2021-04-21 18:21] LABS: Free T4 (Free Thyroxine) 0.95 ng/dL (0.71-1.85); Thyroid Stimulating Hormone 0.64 uIU/mL (0.32-4.0)
== END 2021-04-21 14:38 | disposition home or self-care (01) ==
LOC: HO.LAB 14:37
PROVIDERS: Internal Medicine; Absent Provider Advanced Practice Midwife; Visit Provider Obstetrics & Gynecology
DX: Z39.2 Encounter for routine postpartum follow-up (principal); M54.50 Low back pain, unspecified; E03.9 Hypothyroidism, unspecified; J30.89 Other allergic rhinitis; Z79.899 Other long term (current) drug therapy
CPT/HCPCS: 36415; 84439; 84443; 87086; 99212

== ENCOUNTER → 2021-04-29 10:42 | Outpatient (BNVA) | payer OTHER, MEDICAID, SELFPAY | PROVIDERS: Visit Provider Internal Medicine ==

== ENCOUNTER → 2021-05-20 14:56 | Outpatient (BNVA) | payer OTHER, SELFPAY | PROVIDERS: Visit Provider Advanced Practice Midwife | DX: Z39.2 Encounter for routine postpartum follow-up (principal); O99.345 Other mental disorders complicating the puerperium; F53.0 Postpartum depression; M54.9 Dorsalgia, unspecified; K59.00 Constipation, unspecified; Z98.891 History of uterine scar from previous surgery | CPT/HCPCS: 99212 ==

== ENCOUNTER 2022-02-10 16:18 | Outpatient (REF) | payer OTHER, SELFPAY ==
[2022-02-10 17:16] LABS: Free T4 (Free Thyroxine) 1.05 ng/dL (0.71-1.85); Vitamin D 25-OH Total 17.5 ng/mL (>30)
== END 2022-02-10 16:19 | disposition home or self-care (01) ==
LOC: HO.LAB 16:18
PROVIDERS: Visit Provider Internal Medicine
DX: E55.9 Vitamin D deficiency, unspecified (principal); E03.9 Hypothyroidism, unspecified
CPT/HCPCS: 36415; 82306; 84439; 84443

== ENCOUNTER 2022-05-04 12:55 | Outpatient (REF) | payer OTHER, SELFPAY ==
[2022-05-04 14:53] LABS: Free T4 (Free Thyroxine) 1.11 ng/dL (0.71-1.85); Thyroid Stimulating Hormone 0.83 uIU/mL (0.32-4.0)
[2022-05-06 10:19] LABS: Triiodothyronine T3 Total 112 ng/dL (76-181)
== END 2022-05-04 12:56 | disposition home or self-care (01) ==
LOC: HO.LAB 12:55
PROVIDERS: Visit Provider Internal Medicine
DX: E03.9 Hypothyroidism, unspecified (principal); R00.0 Tachycardia, unspecified
CPT/HCPCS: 36415; 84439; 84443; 84480; 99212

== ENCOUNTER 2023-04-12 15:04 | Outpatient (AMB) | payer OTHER, SELFPAY ==
--- NOTE | 2023-04-12 15:07 | MHC.OFFWIV ---
Intake Vital Signs 04/12/23 15:08 Height 5 ft 2 in Weight 144 lb 8 oz BMI 26.4 BP 112/62 Blood Pressure Location Rt brachial Position Sitting Pulse 97 Pulse Source Pulse Oximeter Temp 97.4 F Temp Source Temporal Artery Scan Pulse Oximetry (%) 97 Oxygen Delivery Method Room Air Intake Visit Reasons: EST/sore throat and cough (lobby masked) Intake Note: pt is here for c.o sore throat and cough Patient Tobacco Use Status: Never used Tobacco Allergies No Known Drug Allergies Allergy (Mild, Verified 04/12/23 15:08) Unknown house dust Allergy (Verified 04/12/23 15:08) Unknown Medication List - Last Reconciled 04/12/23 by Ester Leo PA-C amoxicillin-pot clavulanate 875-125 mg 1 tab PO BID hlcewynw-xjj-xfjjvhg fumarate 15 mg iron 1 tab PO DAILY Do you need a note to return to daycare/school/sports/work: Yes HPI HPI Comments History of Present Illness Details Symptoms x 1 week She said today + congestion/runny nose which is constant + headache and R sided ear pain Pain level is sharp (unable to give number) Worse after sneezing Slight chills but no documented fevers Tylenol without relief Cough without SOB PFSH Medical History Hypothyroidism Hypothyroidism IUGR (intrauterine growth restriction) affecting care of mother Patient denies medical problems Small for dates affecting management of mother Tachycardia Vitamin D deficiency Surgical History History of appendectomy Hx of section Family History Mother Thyroid disorder Father Diabetes mellitus Maternal Grandmother Diabetes mellitus Paternal Grandmother Diabetes mellitus Paternal Grandfather Diabetes mellitus Maternal Aunt No problems noted. Social History Household Members: Spouse and Family Both parents involved: Yes Caregiver staying overnight: No Housing: House Are you a primary respite care provider to a significant other at home: No Do you presently have visiting nurse or other home services: No 75 years or older and lives alone: No Alcohol intake: never Patient Tobacco Use Status: Never used Tobacco service: No Current occupational status: unemployed Female Reproductive History Menstrual Age of Menarche: 15 Review of Systems Const Reports chills, Reports fatigue and Denies fever(s) ENT Denies ear discharge, Reports otalgia, Reports nasal congestion, Reports nasal discharge, Reports post nasal drip and Reports sore throat Card Denies chest pain and Denies dyspnea Resp Reports cough and Denies dyspnea Endo Reports fatigue Physical Exam Vital Signs: Last Vital Signs Temp 97.4 F 04/12/23 15:08 Pulse 97 04/12/23 15:08 BP 112/62 04/12/23 15:08 Pulse Ox 97 04/12/23 15:08 Oxygen Delivery Method Room Air 04/12/23 15:08 BMI result Body Mass Index 26.4 General: Non-toxic, NAD. Speaking full sentences. Skin: Warm dry throughout Eye: EOMI Lymph: No lymphadenopathy HENT: Airway patent. Uvula midline. Minimal pharyngeal erythema or edema. No [employer]. Bilateral canals clear. R Tm + erythematous and bulging. L TM non-erythematous, non-bulging. No TM perforation or hemotympanum noted bilaterally. + rhinorrhea clear Respiratory: CTA bilaterally. No wheezes, rales or rhonchi Cardiac: RRR. No murmur MSK: Full ROM extremities. Neurology: A/O. No aphasia or facial droop. Gait without abnormality Psych: Good mood and affect Results AMB Rapid Strep AMB Rapid Strep Negative Last Edit by Jack Toro CMA on 04/12/23 15:19 Results Reviewed Results Reviewed: Laboratory Last Values Strep Scn Rapid Clinic Negative 04/12/23 15:18 Assessment & Plan Assessment & Plan (1) Otitis media: Code(s): H66.90 - Otitis media, unspecified, unspecified ear Qualifiers: Otitis media type: unspecified Chronicity: acute Qualified Code(s): H66.90 - Otitis media, unspecified, unspecified ear Plan Patient seen and evaluated. Strep negative + R OM on exam She is traveling this weekend so will get ear rechecked prior to going on plane to ensure no TM perforation. Augmentin with food Patient gave verbal understanding and had no additional questions or concerns at time of discharge All questions answered Orders: Orders AMB Rapid Strep Screen Today Z13.9 - Encounter for screening, unspecified Doron Bradshaw MD Medications: New amoxicillin-pot clavulanate 875-125 mg 1 tab PO BID 14 tabs 0RF H66.90 - Otitis media, unspecified, unspecified ear Ester Leo PA-C Patient Instructions: ear rechecked Coding Level of Care Code Est Pt Level 3 (21540) Diagnoses Acute otitis media, unspecified otitis media type H66.90 Otitis media type: unspecified Chronicity: acute
[2023-04-12 15:08] VITALS: BP 112/62; PULSE 97; TEMP 36.3; O2SAT 97; BMI 26.4
== END 2023-04-12 16:27 | disposition home or self-care (01) ==
PROVIDERS: PCP Internal Medicine; Visit Provider Physician Assistant
DX: J02.9 Acute pharyngitis, unspecified (principal)
CPT/HCPCS: 87880; 99213

== ENCOUNTER 2023-07-31 14:36 | Outpatient (AMB) | payer OTHER, SELFPAY ==
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
[2023-07-31 14:53] VITALS: BP 120/76; PULSE 102; TEMP 36.4; O2SAT 97; BMI 26.7
== END 2023-07-31 16:09 | disposition home or self-care (01) ==
PROVIDERS: PCP Internal Medicine; Visit Provider Physician Assistant
DX: R51.9 Headache, unspecified (principal); M77.8 Other enthesopathies, not elsewhere classified
CPT/HCPCS: 99213

== ENCOUNTER 2024-01-22 13:04 | Outpatient (AMB) | payer OTHER, MEDICAID, SELFPAY ==
--- NOTE | 2024-01-22 13:05 | MHC.OFFVIS ---
Vital Signs 01/22/24 13:06 Height 5 ft 2 in Weight 146 lb 2.664 oz BMI 26.7 BP 98/68 Blood Pressure Location Lt brachial Position Sitting Pulse 113 H Pulse Source Pulse Oximeter Intake Visit Reasons: Hypothyroidism-no vm option Intake Note: New patient present today for Hypothyroidism office visit. 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 Was previously seeing Dr. Carey, last appointment 04/2022. HPI from prior visit She underwent routine labs by her [facility] at the beginning of her which revealed a TSH of 3.21. She was started on levothyroxine 25 mcg PO daily and remained on that throughout the course of her . She stopped it in 2020 and her TFTs subsequently remained normal. No family history of thyroid cancer. Mother with hypothyroidism. LMP 01/09/24 , menstrual cycle: every 5 weeks Feels like she has dyspnea on exertion. Also reporting fatigue. Sleep is okay. Today she is tachycardic but denies any chest pains, SOB, swelling in the legs, abdominal pain or nausea. One , c section, normal healthy baby. No exercise regimen Was 125 lbs prepregnancy , delivered 04/04 and was 174 lbs and now down to 146 lbs. But she did try to lose weight to get . She feels she is close to her baseline weight at this. 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 Lives with , child and in laws. Endorses feeling safe at home. She is not using any contraception, however not actively trying to get . She endorses intermittent palpitations only when she is anxious. Patient currently denies heat or cold intolerance, diarrhea or constipation, hair loss, anxiety, mood changes, changes in appearance of eyes or vision changes, tremors, increased diaphoresis or dry skin. ? Patient denies any difficulty swallowing, pain on swallowing or voice changes or difficulty breathing. Patient denies any history of childhood neck radiation. Denies having ever used lithium, amiodarone. Taking 3000 mcg of biotin daily for the past 3 weeks. Review of systems Constitutional: no fevers, chills HEENT: no changes in vision Cardiac: No chest pain, discomfort or palpitations. Pulmonary: Reports dyspnea on exertion GI:No abdominal pain, no nausea or vomiting, no anorexia, no blood in stool : no burning micturition, dysuria or increase in urinary frequency Neurologic: No dizziness, no weakness in extremities Physical exam General: sitting comfortably in no acute distress HEENT: normocephalic/atraumatic, moist oral mucosa Neck: supple, symmetrical, no thyromegaly Cardiac: Pulse: 120 beats per minute Tachycardic, normal heart sounds Pulm: normal breath sounds B/L, no added breath sounds Abd: not distended, no tenderness Extremities: no edema, no signs of myxedema PFSH Medical History Hypothyroidism Hypothyroidism IUGR (intrauterine growth restriction) affecting care of mother Patient denies medical problems Small for dates affecting management of mother Tachycardia Vitamin D deficiency Surgical History Hx of section History of appendectomy Family History Mother Thyroid disorder Father Diabetes mellitus Maternal Grandmother Diabetes mellitus Paternal Grandmother Diabetes mellitus Paternal Grandfather Diabetes mellitus Maternal Aunt No problems noted. Social History Household Members: Spouse and Family Both parents involved: Yes Caregiver staying overnight: No Housing: House Are you a primary rental boats caretaker to a significant other at home: No Do you presently have visiting nurse or other home services: No 75 years or older and lives alone: No Alcohol intake: never Patient Tobacco Use Status: Never used Tobacco service: No Current occupational status: unemployed Female Reproductive History Menstrual Age of Menarche: 15 Physical Exam Vital Signs: Last Vital Signs Pulse 113 H 01/22/24 13:06 BP 98/68 01/22/24 13:06 BMI result Body Mass Index 26.7 Results Reviewed Results Reviewed: Laboratory Tests 05/04/22 13:39 TSH 0.83 Free T4 1.11 Total T3 112 Assessment & Plan Assessment & Plan (1) Vitamin D deficiency: Code(s): E55.9 - Vitamin D deficiency, unspecified Category: Medical Plan: Patient with a history of vitamin-D deficiency. Reporting shortness of breath, overall tiredness. Vitamin-D level from 1021 was 17.5. She is currently not taking any vitamin-D supplements. 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 She subsequently came of the levothyroxine after delivering her baby, and her thyroid function testing remained within normal limits. No recent TFTs. Currently she does report excessive fatigue, and she also has persistent tachycardia. I will repeat her thyroid function tests. However she is on biotin 3000 mcg daily. Have asked her to hold biotin for 5 days prior to doing blood work. Plan: -hold biotin for 5 days prior to doing blood work -ordered TSH and free T4 -if her blood work showed normal thyroid function, she does not need to follow up with me, and can have follow up with her primary care physician for evaluating her further for causes of fatigue, which could include possible anemia. She does not look anemic on exam though. However her iron levels should be evaluated by primary care physician. I have advised her about symptoms of hypothyroidism and hyperthyroidism, and went to reestablish care. I have also asked her that if she has difficulty. Getting a 2nd time, she can schedule an appointment with us to consider evaluation of thyroid function testing and restart her on levothyroxine. (3) Tachycardia: Code(s): R00.0 - Tachycardia, unspecified Category: Medical Plan: Patient also noted to be tachycardic, with her heart rate between 115-120 beats per minute. She endorses chronic tachycardia. Chart review shows that she has had elevated heart rates on all of her clinic visits. She does not appear dehydrated. She appears well today, she does not have any chest pain. I stressed to her the importance of getting in touch with her primary care today to schedule an appointment for evaluation of tachycardia in that she might need further evaluation with Cardiology. Her prior EKG in the chart also shows sinus tachycardia. I do not hear any murmurs on her exam. While I explained to her that tachycardia could be in the setting of anemia, dehydration, she needs to be evaluated with comprehensive workup. Plan: -will send a note to primary care physician for further evaluation and possible cardiology referral -we are checking her thyroid function tests see if it is related to her thyroid Plan I spent 30 minutes in reviewing the record, seeing the patient and documenting in the medical record. Orders: Orders Thyroid Stimulating Hormone Today E03.9 - Hypothyroidism, unspecified, E55.9 - Vitamin D deficiency, unspecified, R00.0 - Tachycardia, unspecified Free T4 (Free Thyroxine) Today E03.9 - Hypothyroidism, unspecified, E55.9 - Vitamin D deficiency, unspecified, R00.0 - Tachycardia, unspecified Vitamin D 25-OH Total Today E03.9 - Hypothyroidism, unspecified, E55.9 - Vitamin D deficiency, unspecified, R00.0 - Tachycardia, unspecified Patient Instructions: Do blood work after 5 days of holding supplements If blood work is normal , follow with your primary care and talk to them about checking your iron levels, vitamin D levels and your heart rate IF it is abnormal, i will schedule you for a follow up If you are trying to get and it has been over 12 months, you can also schedule follow up with us for thyroid Take vitamin D 2000 units daily, any over the counter brand, follow this up with your primary care Coding Level of Care Code Est Pt Level 4 (34492) Diagnoses Vitamin D deficiency E55.9 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
[2024-01-22 13:06] VITALS: BP 98/68; PULSE 113; BMI 26.7
== END 2024-01-22 13:42 | disposition home or self-care (01) ==
PROVIDERS: PCP Internal Medicine; Visit Provider Student in an Organized Health Care Education/Training Program
DX: E55.9 Vitamin D deficiency, unspecified (principal); E06.3 Autoimmune thyroiditis; R00.0 Tachycardia, unspecified
CPT/HCPCS: 99214

== ENCOUNTER → 2024-01-22 13:04 | Outpatient (BNVA) | payer OTHER, SELFPAY | PROVIDERS: PCP Internal Medicine; Visit Provider Student in an Organized Health Care Education/Training Program | DX: E03.9 Hypothyroidism, unspecified (principal); E55.9 Vitamin D deficiency, unspecified; R00.0 Tachycardia, unspecified | CPT/HCPCS: 99212 ==

== ENCOUNTER 2024-01-29 13:38 | Outpatient (REF) | payer OTHER, SELFPAY ==
[2024-01-29 14:53] LABS: Free T4 (Free Thyroxine) 0.95 ng/dL (0.71-1.85); Vitamin D 25-OH Total 26.1 ng/mL (>30)
== END 2024-01-29 13:39 | disposition home or self-care (01) ==
LOC: HO.LAB 13:38
PROVIDERS: Visit Provider Student in an Organized Health Care Education/Training Program
DX: E03.9 Hypothyroidism, unspecified (principal); E55.9 Vitamin D deficiency, unspecified; R00.0 Tachycardia, unspecified
CPT/HCPCS: 36415; 82306; 84439; 84443